=== PATIENT | male | born 1985 | race Caucasian/White ===

== ENCOUNTER 2018-04-12 12:30 | Inpatient (IN) ==
--- NOTE | 2018-04-12 14:29 | Diag Imaging Result Doc PS360 ---
EXAM: CHEST-2 VIEWS INDICATION: cough congestion TECHNIQUE: 2 views COMPARISON: None. FINDINGS: There is a calcified granuloma at the right lung apex. The lungs are grossly clear. There is no discrete pleural fluid collection or pneumothorax. The cardiomediastinal silhouette and central vasculature are grossly unremarkable. IMPRESSION: No evidence of acute pathology by plain radiograph. Electronically signed by Serafin Ellsworth 04/12/2018 2:27 PM
[2018-04-12 15:31] LABS: AGAP 13; BUN 11 mg/dL (8-22); CALCIUM 9.6 mg/dL (8.8-10.2); CHLORIDE 100 mmol/L (98-107); COSMO 280; CREATININE 1.2 mg/dL (0.7-1.2); ESTIMATED GFR > 60; GLUCOSE 152 mg/dL (70-104); POTASSIUM 4.1 mmol/L (3.5-5.1); SODIUM 139 mmol/L (136-145); TCO2 27 mmol/L (25-35)
[2018-04-12] MEDS ORDERED: NORCO-7.5 PO ONE (15:54)
[2018-04-12] MEDS ORDERED: ZOFRAN ODT PO ONE (15:54)
--- NOTE | 2018-04-12 16:41 | PROVIDER DOCUMENTATION ---
This chart was entered by Renee Perry Scribe, acting as scribe for Abel Veloz PA. HPI-General Adult - General Chief Complaint: Extremity Pain Stated Complaint: RT CALF PAIN / COUGH / CHEST HURTS Time Seen by Provider: 04/12/18 15:10 Source: patient Allergies/Adverse Reactions: Patient Allergies Allergy/AdvReac Type Severity Reaction Status Date / Time No Known Allergies Allergy Verified 04/12/18 12:47 - History of Present Illness -Gen Adult Nature of Presenting Problems: 32 y/o male presents to ED with R calf pain, cough, and congestion onset 3 weeks ago. Pt reports he is currently being treated for the cough and congestion by PCP. Pt states he was sent to ED by urgent care for DVT ruleout. Pt is alert and oriented. Location of Pain/Injury: reports: upper extremity (R) Pain Radiation: reports: no radiation Quality of Pain: reports: fullness Severity: reports: moderate Onset/Duration: reports: other (3 weeks ago) Timing: reports: still present Context/Activities at Onset: reports: none Modifying Factors: worse with: palpation Associated Symptoms: reports: cough, sinus congestion/drainage, other (R calf pain) Similar Symptoms Previously?: No Recently seen or treated by another doctor?: Yes (urgent care just prior to ED arrival) Review of Systems - Adult - REVIEW OF SYSTEMS - ADULT Constitutional: denies: chills, fever Eyes: reports: no symptoms reported Ears, Nose, Mouth & Throat: reports: sinus problem. denies: epistaxis Cardiovascular: denies: chest pain, palpitations Respiratory: reports: cough. denies: shortness of breath Gastrointestinal: denies: abdominal pain, diarrhea, nausea, vomiting Genitourinary: reports: no symptoms reported Musculoskeletal: reports: other (R calf pain). denies: back pain, joint pain Integumentary: reports: no symptoms reported Neurological: denies: dizziness/vertigo, seizure Psychiatric: reports: no symptoms reported Endocrine: reports: no symptoms reported Hematologic/Lymphatic: reports: no symptoms reported Allergic/Immunologic: reports: no symptoms reported All Other Systems: Reviewed and Negative Past History - Adult - PAST MEDICAL HISTORY-ADULT Review of Records: reports: Old Records Reviewed, Nursing Assessment Review, Medications Reviewed Major Childhood Illnesses: reports: denies history - PRIOR SURGERIES/PROCEDURES Surgical/Procedure History: reports: none - IMMUNIZATION STATUS Childhood Immunizations: See Nurse Assessment Flu Vaccine: See Nurse Assessment - FAMILY HISTORY Family History: reviewed, not pertinent - SOCIAL HISTORY Smoking: non-smoker Substance Use: none/never Alcohol Use Frequency: never Living Situation: family Physical Exam-General - PHYSICAL EXAM-ADULT Initial Vital Signs Reviewed: Yes - CONSTITUTIONAL General Appearance: appears well, alert, no apparent distress - EYES Eyes: PERRL/EOMI, pink conjunctivae - HEAD, EARS, NOSE, MOUTH & THROAT HENMT: normocephalic/atraumatic, moist mucous membranes, normal ENT inspection - NECK Neck: non-tender, full range of motion - RESPIRATORY Respiratory: chest non-tender, lungs clear, normal breath sounds - CARDIOVASCULAR Cardiovascular: normal peripheral pulses, regular rate, rhythm - GASTROINTESTINAL (ABDOMEN) Abdominal Exam: normal bowel sounds, non tender, soft - MUSCULOSKELETAL Back Exam: normal inspection, no CVA tenderness Extremity: normal range of motion, normal gait, calf tenderness (R), tenderness (R calf) - SKIN Integumentary: normal color, warm/dry - NEUROLOGIC Neurologic: detective automobile section II-XII nml as tested, grossly normal, no motor/sensory deficits - PSYCHIATRIC Psych/Mental Status: normal mood/affect, normal thought content, normal thought process Progress - PLAN OF CARE/RESULTS Progress/Plan/Lab Results: Vital Signs - 8 hr 04/12/18 12:42 Temperature 98 F Pulse Rate 107 H Respiratory Rate 18 Blood Pressure 126/84 O2 Sat by Pulse Oximetry 97 Laboratory Results - last 24 hr 04/12/18 14:50 Sodium 139 Potassium 4.1 Chloride 100 Carbon Dioxide 27 Anion Gap 13 BUN 11 Creatinine 1.2 Estimated GFR/1.73 m2 > 60 BUN/Creatinine Ratio 9 Glucose 152 H Calculated Osmolality 280 Calcium 9.6 Orders Category Date Time Status CHEST-2 VIEWS [RAD] Stat Exams 04/12/18 12:48 Completed BMP [BASIC METABOLIC PANEL] [CHEM] Stat Lab 04/12/18 14:50 Completed D-DIMER [COAG] Stat Lab 04/12/18 14:50 Received Laboratory Tests 04/12/18 04/12/18 14:50 14:50 D-Dimer, Quantitative 5.30 H Sodium 139 Potassium 4.1 Chloride 100 Carbon Dioxide 27 Anion Gap 13 BUN 11 Creatinine 1.2 Estimated GFR/1.73 m2 > 60 BUN/Creatinine Ratio 9 Glucose 152 H Calculated Osmolality 280 Calcium 9.6 Result Diagrams: 04/12/18 14:50 - XRAY 1 XRAY Study: Chest Impression: Normal (FINDINGS: There is a calcified granuloma at the right lung apex. The lungs are grossly clear. There is no discrete pleural fluid collection or pneumothorax. The cardiomediastinal silhouette and central vasculature are grossly unremarkable. IMPRESSION: No evidence of acute pathology by plain radiograph. Electronically signed by Serafin Ellsworth 2018 2:27 PM) - CHANGE OF SHIFT REPORT (ED Provider) Report Given and Care Transferred to:: Dr. Grimm Time of Transfer: 16:41 Items Pending: Ultrasound Results Comment: Pt stable at time of handoff. Departure - Departure Referrals and Follow-Ups: Grupo Gomez MD [Primary Care Provider] - Attestation - Physician/ CARMEN Attestation Patient care was provided by Advanced Practice Provider:: Yes Advanced Practice Provider:: Abel Veloz Advanced Practice Provider documentation review:: The Mid-level provider documentation, treatment plan and medical decision making was reviewed by the physician who agrees with all treatment and medical decision making by the MLP. The physician spent face to face time with patient:: No Advanced Practice Provider documentation review:: Supervising physician onsite and consulted in the evaluation and care of this patient. The physician did not have a face to face encounter with the patient. This chart was documented by the indicated scribe, (Renee Perry, Shawn) and accurately reflects the services I performed and decisions made by me, Abel Veloz PA, as attested by the provider's signature.
--- NOTE | 2018-04-12 17:56 | Extremity Venous Study ---
EXAM: Venous U/S Right Leg INDICATION: calf pain; elevated d-dimer TECHNIQUE: COMPARISON: None. FINDINGS: No filling defects are identified in the right lower extremity deep venous system. There is normal Doppler flow, compressibility, and augmentation involving the veins of the right lower extremity deep venous system. The great saphenous vein also appears to be patent. IMPRESSION: No evidence of DVT. Electronically signed by Serafin Ellsworth 04/12/2018 5:53 PM
--- NOTE | 2018-04-12 19:32 | Diag Imaging Result Doc PS360 ---
EXAM: CT ANGIOGRM PULMONARY ARTERIES INDICATION: dimer 5.4 TECHNIQUE: This exam was performed using automated exposure control, adjustment of mA or kV according to patient size, and/or use of iterative reconstruction technique. Thin section axial images and 3-D MIPS were obtained. COMPARISON: None. FINDINGS: There are filling defects extending from the right main pulmonary artery into the higher order branches predominantly leading to the right lower lobe consistent with acute pulmonary embolism. There is also a small pulmonary embolus involving a third order branch of the left pulmonary artery in the left lower lobe. There is no cardiomegaly. There is no evidence of aortic dissection or aneurysm. There are peripheral wedge-shaped consolidation at the right lung base consistent with pulmonary infarcts. In the left lower lobe there is mild atelectasis and patchy vaguely nodular groundglass opacities. No discrete pulmonary infarct is identified on the left, however. There is no pleural fluid collection and no pneumothorax. Limited views of the upper abdomen are essentially unremarkable. IMPRESSION: 1.Bilateral acute pulmonary emboli predominantly on the right as described with a moderate clot burden. 2.Right basilar pulmonary infarct. 3.Mild patchy groundglass nodular opacities in the left lower lobe though no well-defined infarct is identified here. The findings were discussed with Dr. Baig in the emergency department at 04/12/2018 7:28 PM and was acknowledged. Electronically signed by Searfin Ellsworth 04/12/2018 7:29 PM
[2018-04-12] MEDS ORDERED: LOVENOX 1 MG/KG SUBQ ONE (19:54)
[2018-04-12] MEDS ORDERED: ZOFRAN IV PRN (19:55)
[2018-04-12] MEDS ORDERED: NS 1,000 ML IV ONE (19:55)
[2018-04-12] MEDS: TYLENOL PO PRN (21:15)
[2018-04-12] MEDS: MORPHINE IV PRN (22:30)
[2018-04-12] MEDS ORDERED: BLISTEX MEDICATED BERRY LIP BALM TOP PRN (22:59)
[2018-04-13] MEDS: MORPHINE IV PRN ×6 (02:52→22:40)
[2018-04-13] MEDS: TYLENOL PO PRN ×2 (02:53→20:11)
[2018-04-13 07:41] LABS: BASO# 0.02 X1000 (0.0-0.2); BASO% 0.2 % (0.0-0.8); EOS% 0.8 % (0.0-10.0); HEMATOCRIT 41.2 % (42.0-52.0); HEMOGLOBIN 13.5 g/dL (14.0-18.0); IMM GRAN# 0.05 X1000 (0.0-0.04); IMM GRAN% 0.4 % (0.0-0.5); LYMPH# 2.51 X1000 (1.2-3.4); LYMPH% 20.6 % (20.5-51.1); MCHC 32.8 g/dL (33-37); MCV 82.4 FL (81-99); MONO# 1.23 X1000 (0.11-0.59); MONO% 10.1 % (1.7-9.3); MPV 9.7 FL (7.4-10.4); NEUT% 67.9 % (42.2-75.2); PLT 221 X1000 (130-400); RDW 13.6 % (11.5-14.5); WBC 12.21 X1000 (4.8-10.8)
[2018-04-13 08:01] LABS: AGAP 9; ALBUMIN 3.9 g/dL (3.5-5.0); ALKALINE PHOSPHATASE 104 U/L (32-122); BUN 10 mg/dL (8-22); CALCIUM 8.8 mg/dL (8.8-10.2); CHLORIDE 100 mmol/L (98-107); COSMO 277; CREATININE 1.2 mg/dL (0.7-1.2); ESTIMATED GFR > 60; GLUCOSE 105 mg/dL (70-104); GOT 9 U/L (10-34); GPT 20 U/L (10-44); POTASSIUM 4.1 mmol/L (3.5-5.1); SODIUM 139 mmol/L (136-145); TCO2 30 mmol/L (25-35); TOTAL PROTEIN 6.7 g/dL (6.3-8.3)
[2018-04-13] MEDS: LOVENOX SUBQ SCH ×2 (08:27→20:07)
--- NOTE | 2018-04-13 09:28 | HISTORY AND PHYSICAL ---
PRIMARY CARE PHYSICIAN: Dr. Grupo Gomez. CHIEF COMPLAINT: Right calf pain for 3 weeks, and then developed over the last week to week and a half, cough, congestion, and shortness of breath. HISTORY OF PRESENTING ILLNESS: This is a 32-year-old male who presents to [facility] ER after he was seen at an urgent care center yesterday after he began having right calf pain for about 3 weeks that progressively worsened. Then over the past week and a half, has developed a dry cough, congestion. Yesterday, had increased shortness of breath, and he stated that his resting heart rate was around 100, and he had some right-sided chest pain. When he arrived to the emergency room, he had a D-dimer of 5.30. We did a pulmonary arteriogram that showed bilateral acute pulmonary emboli, predominantly on the right, with a moderate clot burden, right basilar pulmonary infarct, mild patchy ground-glass nodular opacities in the left lower lobe, though no well-defined infarct was identified there. We did do a right lower extremity venous Doppler that showed no evidence of a DVT. Chest x-ray showed no acute pathology, and so he was admitted for further evaluation and treatment. PAST MEDICAL HISTORY: None. PAST SURGICAL HISTORY: Right shoulder surgery 8 years ago. FAMILY HISTORY: Reviewed and noncontributory. SOCIAL HISTORY: Currently lives with family. Denies any tobacco, alcohol, or illicit drug use. ALLERGIES: Sulfa drugs. HOME MEDICATIONS: He does not take any medications on a routine basis. IMAGING AND LABORATORY DATA: Laboratory data showed a white blood cell count of 12.21, hemoglobin 13.5, hematocrit 41.2, platelets 221,000. D-dimer of 5.30. Sodium 139, potassium 4.1, chloride 100, CO2 of 27, BUN of 11, creatinine 1.2, glucose 152. Chest x-ray showed no evidence of acute pathology by plain radiograph. Right lower extremity venous Doppler showed no evidence of DVT. Pulmonary arteriogram showed bilateral acute pulmonary emboli, predominantly on the right, with a moderate clot burden, a right basilar pulmonary infarct, and mild patchy ground- glass nodular opacities in the left lower lobe, though no well-defined infarct was identified. REVIEW OF SYSTEMS: He denied any fever, chills, blurred vision, dizziness. He had shortness of breath, increased heart rate, some right-sided chest pain, right calf pain. Denied any abdominal pain, constipation, diarrhea, burning or hurting with urination. PHYSICAL EXAMINATION: VITAL SIGNS: On arrival, he had a temperature of 98 degrees, pulse 107, respirations 18, blood pressure 126/84, saturating 97% on room air. It is noted that around 9:30 last night, he had a temperature of 101.7 degrees, but currently his temperature is 98.8 degrees. GENERAL: This is a 32-year-old male who is sitting up in the bed and answers questions appropriately. HEENT: Normocephalic, atraumatic. Normal ENT inspection. Oropharynx and nares are clear. Eyes: Pupils are equal, round, reactive to light and accommodation. Extraocular movements are intact. NECK: Normal inspection. Normal range of motion. LUNGS: Clear to auscultation bilaterally with equal lung expansion and chest wall movement. O2 via nasal cannula is currently in use. HEART: Regular rate and rhythm. No murmurs, rubs, or gallops. ABDOMEN: Soft, nontender, nondistended. Bowel sounds are present x4 quadrants. MUSCULOSKELETAL: He has 5/5 strength x4 extremities. NEUROLOGICAL: The cranial nerves II through XII appear grossly intact. ASSESSMENT: 1. Acute bilateral pulmonary emboli. 2. Elevated D-dimer. 3. Shortness of breath. PLAN: He was admitted to the medical unit at [facility], placed on telemetry, O2 per protocol, regular diet. We are going to do a hypercoagulable workup. He is on Lovenox 100 mg subcutaneously every 12 hours. Will keep him on that today, and will most likely transition over to Xarelto or Eliquis tomorrow, and we will have Social Work to check affordability for both of those for the patient. He is on morphine 2 to 4 mg IV every 4 hours p.r.n., Zofran 4 mg IV every 4 hours p.r.n., and further orders after being seen by attending. Dictated by NAOMI Shearer for Linn Sotelo MD Patient was personally seen by me face to face, and I fully agree with the assessment/plan mentioned above. He will probably go home on oral rivaroxaban if remains stable. Linn Sotelo MD cc: NAOMI Shearer MD Brian R. James, MD [facility]
[2018-04-14] MEDS: TYLENOL PO PRN ×3 (06:50→20:21)
[2018-04-14] MEDS: MORPHINE IV PRN ×3 (06:50→16:30)
[2018-04-14] MEDS: LOVENOX SUBQ SCH ×2 (09:25→20:22)
--- NOTE | 2018-04-14 11:11 | PROGRESS NOTE ---
DATE: 04/14/2018 SUBJECTIVE: Patient is laying in bed and complains of having some mild chest pain on his right side from [id number]. He also has been having cough and chest congestion and reportedly, had a temperature of 101 degrees this morning. OBJECTIVE: Vital Signs: Temperature 101.7 degrees, pulse 80 per minute, respiratory rate 20 per minute, blood pressure 118/58, pulse ox 97% on 2 L of oxygen via nasal cannula. General: Patient is alert and oriented x3. He does not appear to be in any acute distress. Cardiovascular System: First and second heart sounds are audible without any murmurs, rubs, or gallops. Respiratory System: No respiratory distress noted. Bilateral lung air entry is moderately decreased, but there are no rales or rhonchi present on auscultation. Gastrointestinal: Abdomen is soft and nondistended. Normal bowel sounds are present. DIAGNOSTIC DATA: No new labs have been done. IMPRESSION: 1. Acute bilateral pulmonary emboli. 2. Chest pain with fever, which could be secondary to an inflammatory process. PLAN: The patient will be continued on Lovenox 1 mg/kg every 12 hours, and I am going to obtain pulmonary consultation for further evaluation. He is going to be most likely transferred to [facility] for pulmonary consult. Meanwhile, he is having fever and therefore, I am going to have a repeat chest x-ray, along with urinalysis done today. He will also have an ECG and echocardiogram for further evaluation. Further care will be provided as per Pulmonary consultation. cc: Linn Sotelo MD
--- NOTE | 2018-04-14 11:21 | Diag Imaging Result Doc PS360 ---
EXAM: CHEST-PORTABLE HISTORY: dyspnea, Acute PE TECHNIQUE: Portable chest single view COMPARISON: 04/12/2018 FINDINGS: Poor inspiratory effort. There is atelectasis in the lower lungs. The heart is not enlarged. The vessels are not distended. There are no infiltrates. No effusion identified. IMPRESSION: Negative exam. Electronically signed by Delfino James 04/14/2018 11:18 AM
--- NOTE | 2018-04-14 14:38 | ECHO REPORT ---
ORDER DATE: 04/14/2018 ECHOCARDIOGRAM: ECHOCARDIOGRAPHIC MEASUREMENTS: 1. Interventricular septum 1.0. 2. Left ventricular posterior wall 1.0. 3. Diastolic diameter 4.9. 4. Left atrium 3. 5. Aorta 3.0. SUMMARY: 1. Technically suboptimal study. Poor acoustic window. Normal left ventricular cavity size. Estimated ejection fraction of 55% to 60%. Endocardium not well visualized in all views. 2. Aortic valve leaflets are trileaflet. Mitral valve was normal. Tricuspid valve was normal. 3. There is no aortic stenosis or regurgitation. There is trace mitral regurgitation. Trivial tricuspid regurgitation. Peak velocity across the tricuspid valve less than 2 m/sec. 4. Pulmonic valve is normal. There is trivial pulmonary regurgitation. cc: MD Linn Chavez MD
[2018-04-14 16:10] LABS: URINE SOURCE CLEAN CATCH
[2018-04-14 16:15] LABS: BILIRUBIN URINE NEGATIVE (NEGATIVE); BLOOD URINE TRACE (NEGATIVE); CLARITY CLEAR (CLEAR); COLOR YELLOW; GLUCOSE URINE NEGATIVE (NEGATIVE); KETONE URINE 2+(Moderate) mg/dL (NEGATIVE); LEUKOCYTES URINE TRACE (NEGATIVE); NITRITE URINE NEGATIVE (NEGATIVE); PH URINE 6.5; PROTEIN URINE 1+(30 mg/dL) mg/dL (NEGATIVE); UROBILINOGEN URINE 1 mg/dL
[2018-04-14 16:27] LABS: URINE BACTERIA 1+ /HFP; URINE CAST NONE SEEN /LPF; URINE CRYSTAL NONE SEEN /HPF; URINE EPITHELIAL CELLS <10 /HPF (<10); URINE RBC <10 /HPF (<10); URINE WBC <10 /HPF (<10); URINE YEAST NONE SEEN /HPF
[2018-04-15] MEDS: MORPHINE IV PRN ×4 (02:08→21:44)
[2018-04-15] MEDS ORDERED: FLU VACCINE IM ONE (04:20)
[2018-04-15] MEDS: TYLENOL PO PRN ×3 (07:17→21:44)
[2018-04-15 09:18] LABS: BASO# 0.02 X1000 (0.0-0.2); BASO% 0.1 % (0.0-0.8); EOS# 0.03 X1000 (0.0-0.7); EOS% 0.2 % (0.0-10.0); HEMATOCRIT 37.9 % (42.0-52.0); HEMOGLOBIN 12.4 g/dL (14.0-18.0); IMM GRAN# 0.04 X1000 (0.0-0.04); IMM GRAN% 0.3 % (0.0-0.5); LYMPH# 1.63 X1000 (1.2-3.4); LYMPH% 11.8 % (20.5-51.1); MCH 26.9 PG (27-31); MCHC 32.7 g/dL (33-37); MCV 82.2 FL (81-99); MONO# 1.53 X1000 (0.11-0.59); MONO% 11.1 % (1.7-9.3); MPV 9.7 FL (7.4-10.4); NEUT# 10.59 X1000 (1.4-6.5); NEUT% 76.5 % (42.2-75.2); PLT 239 X1000 (130-400); RBC 4.61 XMIL (4.7-6.1); RDW 12.9 % (11.5-14.5); WBC 13.84 X1000 (4.8-10.8)
[2018-04-15] MEDS: LOVENOX SUBQ SCH (09:24)
--- NOTE | 2018-04-15 20:08 | CONSULTATION ---
DATE OF CONSULTATION: 04/15/2018 REQUESTING PROVIDER: Linn Sotelo MD and NAOMI Law. REASON FOR CONSULTATION: Pulmonary embolism and dyspnea. HISTORY OF PRESENT ILLNESS: This is a 32-year-old male with no significant past medical history. He presented to the [facility] ER on 04/12/2018 with right calf pain for over 3 weeks that has been progressively worsened. CT angiogram pulmonary arterials showing bilateral acute pulmonary emboli, predominantly on the right with moderate clot burden, right basilar pulmonary infarct and mild patchy ground-glass nodular opacities in the left lower lobe, though no well-defined infarct is identified. The patient has been admitted for further evaluation and treatment. He was transferred to this service yesterday afternoon for pulmonary evaluation. At the time of my exam, patient is resting comfortably in bed with his at the bedside. His is a physical therapist. Most of information is obtained from her under the patient's permission. She reports patient has right mild calf pain for 2 and half weeks. He started dry cough about 1 week ago. Last patient had an episode of severe cough in his work place and the cough was so bad that he passed out for about 20 mins. Last Saturday, patient became SOB without activity. Then last Saturday, patient started hemoptysis, which is worsened after admission. Patient also has low grade fever at home and later develops high grade fever after admission. He developed left side chest pain in the ER. Patient has intermittent pedal edema since last year with RLE worse than LLE. PAST MEDICAL HISTORY: None. PAST SURGICAL HISTORY: Right shoulder surgery 8 years ago, tonsillectomy and adenoidectomy when patient was at 20s. FAMILY HISTORY: Reviewed and noncontributory. SOCIAL HISTORY: The patient is and lives with his family. He works as an traveling repair accountant. He has a dog as a pet staying inside the house. He has no history of alcohol, tobacco or illicit drug use. ALLERGIES: Sulfa drugs. REVIEW OF SYSTEMS: A 10-point review of systems was conducted and the pertinent is listed within the HPI. Otherwise, noncontributory. PHYSICAL EXAMINATION: Vital Signs: Temperature 98.8, blood pressure 122/68, pulse 91, respiratory rate 20, oxygen saturation 97% at room air. General: This is a 32- year-old male. He is lying in the bed comfortably with his by the bedside. No acute distress noted. HEENT: Atraumatic. Trachea midline. Mucosa pink and moist. Respiratory: Clear to auscultation bilaterally, with equal lung expansion and chest wall movement. Cardiovascular : Regular rate and rhythm without murmur noted. Gastrointestinal: Normoactive bowel sounds in all 4 quadrants. Nontender, nondistended, soft. Extremities: No pedal edema. No cyanosis. No clubbing. Neurologic: Patient is oriented x 3. Speech fluent. Moves all extremities equally bilaterally. ASSESSMENT AND PLAN: This is a 32-year-old male with no significant past medical history who has been admitted for acute bilateral pulmonary emboli, elevated D- dimer and shortness of breath. 1. Acute bilateral pulmonary emboli. Continue anticoagulant as prescribed; continue supplemental oxygen as needed; continue telemetry; consider hematology evaluation. 2. Shortness of breath. Continue supplemental oxygen as needed. 3. Chest pain with fever. Patient is currently on morphine for pain control. 4. Continue GI and DVT prophylaxis. Thank you for the courtesy of this consult. Dictated by NAOMI Jacobo for Jamie Zarate MD cc: NAOMI Jacobo MD [facility]
[2018-04-15] MEDS: XARELTO PO SCH (21:49)
--- NOTE | 2018-04-16 00:41 | PROGRESS NOTE ---
DATE: 04/15/2018 SUBJECTIVE: Today, Mr. Maurice refers to be doing a little better. He was not coughing anymore, and has not had any more hemoptysis. He did say he was still hurting. The patient also did run a few episodes of fever. The girlfriend was at the bedside at the time of the encounter. OBJECTIVE: Vital Signs: Blood pressure was 114/61, pulse 78, respirations 16, temperature 98.6 degrees. General: Mr. Maurice is a 32-year-old male. He was in bed. He was in mild painful distress, but mucosa was pink and moist, anicteric, acyanotic. Neck: Supple. There was no JVD. Chest: Good air entry bilateral. A few crackles in the posterior lung naylor, more so on the right than the left. Cardiovascular: Regular rate and rhythm. No murmurs, no rubs, no gallops. Gastrointestinal: Abdomen soft, nontender. Bowel sounds present. Genitourinary: Unremarkable. Extremities: No pedal edema. Distal pulses present. [facility]IGHW[facility] COMMISSIONER: Patient was awake, alert, oriented. There was no focal neurological deficit. LABORATORY DATA: 1. WBC was 13.84, hemoglobin was 12.4, platelet count of 239. Chemistry was also reviewed, completely unremarkable. 2. The patient's CTA, which was done on the , did show bilateral acute pulmonary emboli, predominantly on the right. There was also a right basilar pulmonary infarct. There was a mild patchy ground-glass nodular opacity in the left lower lobe, though no well-defined infarct was well-identified. 3. An x-ray yesterday was negative. 4. Echocardiogram did show an ejection fraction of 55 to 60 percent, not any other abnormality. ASSESSMENT AND PLAN: 1. Bilateral pulmonary emboli. The patient really does not seem to have any risk factors, has not had any recent surgery. He is very mobile. There is always the concern of a genetic predisposition, so all of those thrombophilic workup has been ordered. The patient is currently on Lovenox. He is hemodynamically stable, so I am going to switch this to an oral anticoagulant, and also have Heme-Onc to see him. 2. Pulmonary infarct. This is secondary to the pulmonary embolism. I think the fever and the slightly elevated white cell count is all due to the pulmonary infarct. I do not think there is any infection yet. The patient is currently not on any antibiotics, and we will continue to observe. We will use Tylenol p.r.n. if needed for both fever and pain control. 3. Mild clinical volume depletion. Patient has been advised on adequate oral hydration. 4. Morbid obesity, with BMI of 32.5. Weight loss has been advised. cc: Jeremy Roche MD
[2018-04-16] MEDS: MORPHINE IV PRN ×4 (04:10→21:14)
[2018-04-16 07:18] LABS: BASO# 0.02 X1000 (0.0-0.2); BASO% 0.2 % (0.0-0.8); EOS# 0.15 X1000 (0.0-0.7); EOS% 1.2 % (0.0-10.0); HEMATOCRIT 39.2 % (42.0-52.0); HEMOGLOBIN 12.5 g/dL (14.0-18.0); IMM GRAN# 0.04 X1000 (0.0-0.04); IMM GRAN% 0.3 % (0.0-0.5); LYMPH% 13.9 % (20.5-51.1); MCH 26.4 PG (27-31); MCHC 31.9 g/dL (33-37); MCV 82.7 FL (81-99); MONO# 1.35 X1000 (0.11-0.59); MPV 10.3 FL (7.4-10.4); NEUT# 8.96 X1000 (1.4-6.5); NEUT% 73.4 % (42.2-75.2); PLT 288 X1000 (130-400); RBC 4.74 XMIL (4.7-6.1); RDW 13.1 % (11.5-14.5); WBC 12.22 X1000 (4.8-10.8)
[2018-04-16] MEDS: XARELTO PO SCH ×2 (08:14→17:27)
[2018-04-16] MEDS: TYLENOL PO PRN (18:28)
--- NOTE | 2018-04-16 18:47 | PROGRESS NOTE ---
DATE: 04/16/2018 SUBJECTIVE: This morning, Mr. boyce refers to be doing fairly okay. Still has some pains. According to him the pain is kind of moving from the right to the left side, still pleuritic in nature and he continues to cough up some blood. OBJECTIVE: Vital signs: Blood pressure is 111/68, pulse is 87, respirations 16, temperature is 99.4 degrees. General: Mr. Maurice is a 32-year-old gentleman. He is in bed. He is not in any cardiopulmonary distress. Mucosa is pink and moist. Anicteric. Acyanotic. Neck: Supple. Chest: Good air entry bilateral. There are a few crackles posteriorly, more so on the right than the left. Cardiovascular: Regular rate and rhythm. There are no murmurs. No rubs. No gallops. Abdomen: Soft, nontender. Bowel sounds present. Genitourinary: Unremarkable. Extremities: No pedal edema. Central Nervous System: The patient is awake, alert, and oriented. There is no focal neurological deficit. LABORATORY DATA: WBC is down to 12.22, hemoglobin is 12.5, platelet count of 288,000. Chemistries is unremarkable. Homocystine level is normal. Phospholipid antibodies are negative. Antithrombin 3 activity is normal. Protein C activity is also normal. CURRENT MEDICATIONS: Xarelto 15 mg b.i.d., morphine p.r.n. ASSESSMENT: 1. Bilateral pulmonary emboli. Patient has been started on Xarelto. A thrombophilic workup has been ordered; so far, those that we have are negative. Still pending the genetic testing. Heme-Onc has been consulted. 2. Hemoptysis secondary to pulmonary infarct as a result of the pulmonary emboli noted. 3. Mild clinical volume depletion improved. 4. Obesity with BMI of 32.5 weight loss has been advised. PLAN: In general, I think Mr. Maurice is fairly stable. He is still coughing, still has some pleuritic chest pain which we think is all secondary to the pulmonary infarct. We will continue with the current anticoagulation. Patient is pending Heme-Onc evaluation today. I have encouraged him to walk around and sit up more in the chair than lying down in bed. Hopefully, tomorrow, we will be able to discharge him pending recommendations from Heme-Onc. cc: Jeremy Roche MD
--- NOTE | 2018-04-17 04:29 | HEMO/ONC CONSULTATION ---
DATE: 04/16/2018 REQUESTING PHYSICIAN: Consultation requested by hospitalist service. REASON FOR CONSULTATION: Consultation is for bilateral PTE. HISTORY OF PRESENT ILLNESS: Mr. Maurice is a 32-year-old, male who reported to [facility] ER after being evaluated in urgent care for right calf pain. His pain has been present for about 3 weeks. It has progressively worsened. He also presented with increased shortness of breath, tachycardia, and right-sided chest pain. Evaluation revealed the patient to have bilateral PTEs. Lower extremity Doppler revealed no DVT. The patient has now been admitted for further evaluation and treatment. PAST MEDICAL HISTORY: None. PAST SURGICAL HISTORY: Status post right shoulder surgery 8 years ago. FAMILY HISTORY: No history of DVT. SOCIAL HISTORY: Patient currently lives with his . He denies any tobacco, alcohol, or illicit drug use. REVIEW OF SYSTEMS: Twelve point review of systems has been conducted and is negative except for as expressed in the HPI. PHYSICAL EXAMINATION: Vital Signs: Temperature 99.4 degrees, heart rate 87, respirations 16, blood pressure 111/68, O2 saturation 96% on 2 L nasal cannula. General: This is a male lying in his hospital bed. He is resting comfortably. He has 2 family members at bedside. HEENT: Head: Normocephalic, atraumatic. Eyes: Pupils equal, round, and reactive. Ears, Nose, Throat, Neck, and Mouth: Mucosa is normal. Gross auditory acuity is intact. Cardiovascular: S1- S2 heard. No murmurs, gallops, rubs appreciated. Respiratory: Chest is clear. Normal respiratory effort. Gastrointestinal: Abdomen is soft. Positive bowel sounds. Musculoskeletal: no bony abnormalities.: Extremities: No edema. Neurologic: The patient is alert. LABS AND STUDIES: White blood cells today are 12.22, hemoglobin 12.5, hematocrit 39.2, platelet count 288,000. Imaging results as per above and specifically, the CT angiogram showed bilateral acute pulmonary emboli predominantly on the right side with moderate clot burden , right basilar pulmonary infarct. ASSESSMENT AND PLAN: 1. Acute bilateral pulmonary thromboembolisms. It appears that these are unprovoked. The patient is very active. Denies any recent trips or even recent surgeries. He has no family history of blood clot. A hypercoagulable workup has been ordered and some of it is currently pending. Patient is already on Xarelto 15 mg twice a day, which is appropriate. I did review with the patient and his family that he needs to continue Xarelto 15 mg twice a day for a total of 21 days and then can transition to 20 mg daily thereafter. We will have the patient follow up with us once he is discharged to review his hypercoagulable workup and discuss the full length of anticoagulation therapy that will be required. 2. Pulmonary infarct secondary to pulmonary embolism. Aware. They are monitoring the patient with some pain medications as needed. 3. Hemoptysis, likely related to pulmonary infarct. Monitor closely. Should diminish over time. Thank you for consulting us on Mr. Maurice while he is here at [facility]. We will follow along and adjust our treatment plan per his hospital course. Dictated by KERRY Champion for Gabby Moreno MD cc: Gabby Moreno MD I have seen and examined the patient and the above note reflects my assessment and plan. Gabby PADILLA
[2018-04-17 08:08] VITALS: BP 103/65
[2018-04-17] MEDS: XARELTO PO SCH (08:31)
--- NOTE | 2018-04-18 06:43 | DISCHARGE SUMMARY ---
ADMISSION DATE: 04/12/2018 DISCHARGE DATE: 04/17/2018 DISPOSITION: Home. FOLLOW-UP: 1. Dr. Grupo Gomez. 2. Dr. Moreno. 3. Dr. Zarate. CONSULTATION DURING THIS ADMISSION: 1. Pulmonary Medicine was consulted. Patient was seen by Dr. Zarate. 2. Hematology/Oncology was consulted. Patient was seen by Dr. Moreno. INVASIVE PROCEDURES DONE DURING ADMISSION: None. IMAGING STUDIES OF SIGNIFICANCE: 1. A chest x-ray was done which was negative. 2. Extremity Doppler was done which showed no DVT. 3. A CTA of the lungs showed bilateral acute pulmonary emboli on the right with moderate clot burden. There is a right basilar pulmonary infarct. There was also mild patchy ground-glass nodular opacity in the left lower lobe, though not well-defined, infarct was identified. 4. Echocardiogram showed an ejection fraction of 55% to 60%. ADMISSION DIAGNOSES: 1. Acute bilateral pulmonary emboli. 2. Shortness of breath. DIAGNOSES AT TIME OF DISCHARGE: 1. Acute bilateral pulmonary emboli. The patient is currently on Xarelto and has been evaluated by Heme-Onc and Pulmonary Medicine. 2. Hemoptysis secondary to pulmonary infarct. 3. Obesity with BMI of 32.5. 4. Heterozygous factor V laden mutation noted. This of course could be a contributing factor to the VTE (PE that the patient had). DISCHARGE MEDICATIONS: 1. Xarelto 50 mg b.i.d. for 19 days. 2. Xarelto 20 mg daily for at least 6 months. 3. Steele 1 to 2 tablets q.4 to 6 hours p.r.n. if needed for pain. PRESENTING COMPLAINT: Right calf pain and shortness of breath. HISTORY OF PRESENTING COMPLAINT: Mr. 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 He came to the emergency department in [place] because of ongoing shortness of breath and hemoptysis. He did have some calf discomfort 3 weeks prior. Upon presentation, patient was evaluated and was worked up for VTE. A CTA of the lung was positive for pulmonary emboli. The patient was subsequently transferred to [facility] for higher level of care. HOSPITAL COURSE: The patient did pretty well and was initially started on subcutaneous Lovenox therapeutic dose. Subsequently, he was seen by Pulmonary Medicine as well as Heme-Onc. His shortness of breath continued to improve. Hemoptysis also improved. His anticoagulation was switched to oral Xarelto. Most of his thrombophilic workup came back negative except for the factor V laden genetic mutation which was positive for heterozygosity. This morning Mr. Maurice refers to be doing a lot better. His vitals show blood pressure is 103/65, pulse 73, and respirations 18. Patient was saturating about 90 to 93 percent on room air. Physical exam is unremarkable except for a few crackles in the posterior lung naylor. The patient has been up and walking around with the girlfriend who is a physical therapist herself. He is clinically stable for discharge today. He is going to follow up with Dr. Moreno and Dr. Zarate as well as his primary care doctor Dr. Grupo Gomez. All the discharge instructions have been discussed with him and he voiced understanding. TIME SPENT: The time spent for discharge is 35 minutes. cc: MD Grupo Mendez MD Dr. Najjar Dr. Shah
== END 2018-04-17 12:55 | disposition home or self-care (01) | DRG 176 ==
LOC: P.ED 12:30 → P.MEDSURG 12:30 → SUATTDRO 12:31 → OBSVTOIN 12:31 → 4N 04-14 19:03 → 3N 04-16 20:44
PROVIDERS: ATTEND Internal Medicine
CPT/HCPCS: 71010; 71020; 71045; 71046; 71275; 80048; 80053; 81001; 81240; 81241; 83090; 85025; 85300; 85301; 85302; 85306; 85379; 85612; 85613; 85730; 86147; 93005; 93306; 93971; 94761; 99285; A9270; J1650; J2270; J7030; Q9967